=== PATIENT | female | born 1965 | race African-American/Black ===

== ENCOUNTER 2017-10-09 15:51 | Emergency (ER) | payer OTHER, SELFPAY | END 2017-10-09 18:05 | disposition home or self-care (01) | LOC: ERS 15:51 | DX: J11.1 Influenza due to unidentified influenza virus with other respiratory manifestations (principal); E11.9 Type 2 diabetes mellitus without complications; F17.210 Nicotine dependence, cigarettes, uncomplicated | CPT/HCPCS: 99283 ==

== ENCOUNTER 2019-11-05 17:45 | Emergency (ER) | payer SELFPAY | END 2019-11-05 18:45 | disposition home or self-care (01) | LOC: ERS 17:45 | DX: B86 Scabies (principal); E11.9 Type 2 diabetes mellitus without complications; F41.9 Anxiety disorder, unspecified; F17.210 Nicotine dependence, cigarettes, uncomplicated; Z71.6 Tobacco abuse counseling; W57.XXXA Bitten or stung by nonvenomous insect and other nonvenomous arthropods, initial encounter | CPT/HCPCS: 99406 ==

== ENCOUNTER 2020-04-07 18:22 | Emergency (ER) | payer MEDICAID, OTHER ==
[2020-04-08 12:13] LABS: SARS-CoV-2 MS2 Positive; SARS-CoV-2 N Gene Negative; SARS-CoV-2 S Gene Negative; SARS-CoV-2 by NAA Not Detected (NotDetected); SARS-CoV-2 orf1ab Negative
== END 2020-04-07 18:37 | disposition home or self-care (01) ==
LOC: ERS 18:22
DX: Z20.828 Contact with and (suspected) exposure to other viral communicable diseases (principal); E11.9 Type 2 diabetes mellitus without complications; F41.9 Anxiety disorder, unspecified; F17.210 Nicotine dependence, cigarettes, uncomplicated
CPT/HCPCS: 87635; 99283; U0003

== ENCOUNTER 2022-11-07 15:09 | Emergency (ER) | payer MEDICAID, OTHER | END 2022-11-07 17:49 | disposition home or self-care (01) | LOC: ERS 15:09 | DX: M54.50 Low back pain, unspecified (principal); E11.9 Type 2 diabetes mellitus without complications; F17.210 Nicotine dependence, cigarettes, uncomplicated | CPT/HCPCS: 99283 ==